=== PATIENT | female | born 1965 | race Caucasian/White ===

== ENCOUNTER 2019-07-04 14:44 | Emergency (ER) | payer OTHER ==
[2019-07-04] MEDS ORDERED: BUPIVACAINE 0.5% PF 10 ML VIAL ONE (15:18)
[2019-07-04] MEDS ORDERED: TETANUS & DIPHTHERIA TOX,ADULT 0.5 ML VIAL ONE (16:04)
--- NOTE | 2019-07-04 16:21 | ER ---
Nurse's Notes [facility] Name: Vivi Hernandez Age: 53 yrs Sex: Female : 1965 Arrival Date: 07/04/2019 Time: 14:53 Bed 18 Private MD: None, None Diagnosis: Foreign Body to the Right Finger Presentation: 07/03 15:02 Chief complaint: Patient states: Fish hook to R index finger, reports dizziness and ph nausea r/t pain. Coronavirus screen: Patient denies a cough. Patient denies measured and/or subjective temperature greater than 100.4F prior to today's visit. Patient denies travel on a cruise ship or to a country the [facility] currently lists as an affected area. Patient denies contact with known and/or suspected case of COVID-19. Ebola Screen: No symptoms or risks identified at this time. Initial Sepsis Screen: Does the patient meet any 2 criteria? No. Patient's initial sepsis screen is negative. Does the patient have a suspected source of infection? No. Patient's initial sepsis screen is negative. Risk Assessment: Do you want to hurt yourself or someone else? Patient reports no desire to harm self or others. Onset of symptoms was July 04, 2019. 15:02 Method Of Arrival: Wheelchair ph 15:02 Acuity: FCO 4 ph Historical: - Allergies: 15:06 No Known Allergies; ph - Home Meds: 15:06 Hydrocodone-Acetaminophen Oral [Active]; ph - PMHx: 15:06 Thyroid problem; Chronic pain; ph - Immunization history:: Adult Immunizations unknown, Last tetanus immunization: unknown. - Social history:: Smoking status: Patient reports the use of cigarette tobacco products, smokes one pack cigarettes per day. Screenin:27 Abuse screen: Denies threats or abuse. Nutritional screening: No deficits noted. Tuberculosis screening: No symptoms or risk factors identified. Fall Risk None identified. Assessment: 15:27 General: Appears in no apparent distress. Behavior is calm. Pain: Complains of pain in ah palmar aspect of distal phalanx of right index finger. Neuro: Level of Consciousness is awake, alert, Oriented to person, place, time. Cardiovascular: Heart tones S1 S2 present Capillary refill < 3 seconds Patient's skin is warm and dry. Respiratory: Airway is patent Respiratory effort is even, unlabored, Respiratory pattern is regular, symmetrical, Breath sounds are clear bilaterally. GI: No signs and/or symptoms were reported involving the gastrointestinal system. : No signs and/or symptoms were reported regarding the genitourinary system. EENT: No signs and/or symptoms were reported regarding the EENT system. Derm: No signs and/or symptoms reported regarding the dermatologic system. Musculoskeletal: No signs and/or symptoms reported regarding the musculoskeletal system. Injury Description: Foreign body is located palmar aspect of distal phalanx of right index finger is fishhook in tip of finger was sustained 2-4 hours ago. Vital Signs: 15:02 BP 132 / 94; Pulse 86; Resp 18; Temp 97.6; Pulse Ox 98% on R/A; Weight 79.38 kg; Height ph 5 ft. 0 in. (152.40 cm); Pain 8/10; 15:02 Body Mass Index 34.18 (79.38 kg, 152.40 cm) ph ED Course: 14:53 Patient arrived in ED. dp 14:54 None, None is Private Physician. dp 14:56 Mike Michel PA is PHCP. [facility] 14:56 Tomer Miller MD is Attending Physician. [facility] 15:04 Triage completed. 15:07 Arm band placed on Patient placed in an exam room. 15:26 Norma Diaz, RN is Primary Nurse. 15:33 Patient has correct armband on for positive identification. Bed in low position. Call light in reach. Side rails up X 1. 16:10 Patient did not have IV access during this emergency room visit. 16:11 fishhook removal, set up supplies. 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 Exp: 05/03/2021. Lot #: [id number]. } Route: IM; Site: right deltoid; 17:00 Follow up: Response: No adverse reaction Outcome: 16:20 Discharge ordered by . [facility] 17:00 Discharge instructions given to patient, Instructed on discharge instructions, follow ah up and referral plans. Demonstrated understanding of instructions, follow-up care, medications, Prescriptions given X 2. 17:14 Patient left the ED. 17:15 Discharged to home ambulatory. 17:15 Condition: good Signatures: Mike Michel PA PA jmm Hall, Patricia, RN RN ph Mayo Wells Amy, RN RN
--- NOTE | 2019-07-04 16:21 | EDPHYS ---
Physician Documentation [facility] Name: Vivi Hernandez Age: 53 yrs Sex: Female : 1965 Arrival Date: 07/04/2019 Time: 14:53 Bed 18 Private MD: None, None ED Physician Tomer Miller Historical: - Allergies: 07/03 15:06 No Known Allergies; ph - Home Meds: 15:06 Hydrocodone-Acetaminophen Oral [Active]; ph - PMHx: 15:06 Thyroid problem; Chronic pain; ph - Immunization history:: Adult Immunizations unknown, Last tetanus immunization: unknown. - Social history:: Smoking status: Patient reports the use of cigarette tobacco products, smokes one pack cigarettes per day. Vital Signs: 15:02 BP 132 / 94; Pulse 86; Resp 18; Temp 97.6; Pulse Ox 98% on R/A; Weight 79.38 kg; Height ph 5 ft. 0 in. (152.40 cm); Pain 8/10; 15:02 Body Mass Index 34.18 (79.38 kg, 152.40 cm) ph Procedures: 16:14 Foreign Body Removal: a fishhook, from the right palmar aspect of distal phalanx of [facility] right index finger, by using a hemostat, The patient tolerated the removal well. MDM: 15:06 Patient medically screened. [facility] 16:14 Data reviewed: vital signs, nurses notes. Counseling: I had a detailed discussion with steven the patient and/or guardian regarding: the historical points, exam findings, and any diagnostic results supporting the discharge/admit diagnosis, the need for outpatient follow up, to return to the emergency department if symptoms worsen or persist or if there are any questions or concerns that arise at home. 16:14 ED course: Patient given infection risk return precautions. Patient understood and steven agrees with the plan of care. . 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 Exp: 05/03/2021. Lot #: [id number]. } Route: IM; Site: right deltoid; 17:00 Follow up: Response: No adverse reaction Disposition: 07/04/19 16:20 Discharged to Home. Impression: Foreign Body to the Right Finger. - Condition is Stable. - Prescriptions for Ultracet 37.5- 325 mg Oral Tablet - take 1 tablet by ORAL route every 6 hours - for up to 5 days; do not exceed 8 tablets per day.; 12 tablet. Doxycycline Hyclate 100 mg Oral Tablet - take 1 tablet by ORAL route every 12 hours; 20 tablet. - Medication Reconciliation Form, Thank You Letter, Antibiotic Education, Prescription Opioid Use form. - Follow up: Private Physician; When: 2 - 3 days; Reason: Recheck today's complaints, Continuance of care, Re-evaluation by your physician. Addendum: 07/18/2019 17:26 Addendum: This is a 53 year old female with a history of chronic pain that presents to j the ED with complaints of fishhook to the right 2nd finger. This occurred while fishing. patient denies other injury. Patient is not UTD on tetanus immunizations. ROS: MS positive for injury, otherwise negative. PE: GEN NAD, Cardio RRR, Resp No resp distress appreciated, Extremities fishhook noted to the right 2nd finger, FROM appreciated, < 2 sec cap refill, NVI, Psych Pleasant and calm, Neck FROM appreciated, Neuro A x O X 3. Procedure: The right second finger was anesthetized with 3 ml of 0.5% marcaine. Good anesthesia was achieved. [place] removed using hemostats. Procedure successful. Patient tolerated this well. MDM: Fish hook removed. Patient covered with oral abx due to risk of infection. Patient was given wound infection return precautions. Patient understood and agrees with the plan of care. . Signatures: Mike Michel PA PA jmm Hall, Patricia, RN RN Norma Diaz RN RN Corrections: (The following items were deleted from the chart) 07/03 17:14 16:20 07/04/2019 16:20 Discharged to Home. Impression: Foreign Body to the Right ah Finger. Condition is Stable. Forms are Medication Reconciliation Form, Thank You Letter, Antibiotic Education, Prescription Opioid Use. Follow up: Private Physician; When: 2 - 3 days; Reason: Recheck today's complaints, Continuance of care, Re-evaluation by your physician. steven
[2019-07-04 17:20] VITALS: BP 132/94; TEMP 97.6; O2SAT 98
== END 2019-07-04 17:14 | disposition home or self-care (01) ==
LOC: ER 14:44
DX: S61.240A Puncture wound with foreign body of right index finger without damage to nail, initial encounter (principal); E07.9 Disorder of thyroid, unspecified; F17.210 Nicotine dependence, cigarettes, uncomplicated; Z23 Encounter for immunization
CPT/HCPCS: 90471; 90714; 99283

== ENCOUNTER 2020-12-22 14:35 | Emergency (ER) | payer OTHER ==
[2020-12-22 15:13] LABS: Urine Blood Negative (Negative); Urine Glucose Negative (Negative); Urine Protein Negative (Negative); Urine pH 6.5 (5.0-7.0)
[2020-12-22 15:51] LABS: Absolute Lymphocytes (CBC) 1.4 K/uL (0.7-4.9); Basophils % 1.2 % (0-1.3); Lymphocytes % 17.5 % (15.3-44.8); MPV 10.3 fL (7.6-11.3); RBC Red Blood Cell Count 4.73 M/uL (3.86-4.86)
[2020-12-22 15:51] LABS: Barbiturates NEGATIVE (NEGATIVE); Benzodiazepines NEGATIVE (NEGATIVE); Cocaine NEGATIVE (NEGATIVE); METHAMPHETAM NEGATIVE (NEGATIVE); Methadone NEGATIVE (NEGATIVE); Opiates NEGATIVE (NEGATIVE); Phencyclidine NEGATIVE (NEGATIVE); THC Cannibis NEGATIVE (NEGATIVE)
[2020-12-22 15:56] LABS: Protime INR 0.97
[2020-12-22 16:20] LABS: ALT/SGPT 18 U/L (12-78); AST/SGOT 13 U/L (15-37); Albumin 3.6 g/dL (3.4-5.0); Alkaline Phosphatase 109 U/L (45-117); BUN Blood Urea Nitrogen 10 mg/dL (7-18); Bicarbonate 29 mmol/L (21-32); Bilirubin Direct < 0.1 mg/dL (0-0.2); Bilirubin Total 0.3 mg/dL (0.2-1.0); Glucose Level 109 mg/dL (74-106); Potassium 3.5 mmol/L (3.5-5.1); Protein, Total 7.8 g/dL (6.4-8.2); Sodium Level 142 mmol/L (136-145)
--- NOTE | 2020-12-22 17:12 | ER ---
Nurse's Notes [facility] Name: Vivi Hernandez Age: 54 yrs Sex: Female : 1965 Arrival Date: 12/22/2020 Time: 14:39 Bed Treatment Private MD: Jonnathan Craft Diagnosis: Adjustment disorder with depressed mood;Suicidal ideations Presentation: 12/22 14:43 Chief complaint: Patient states: "Just having some suicidal issues." Pt has no plan at sv this time. No Attempts made. Family reports that she saw her psychiatrist this morning and was expressing to the MD her thoughts of suicide. They had to call the authorities, and the police showed up at her door. Risk Assessment: Do you want to hurt yourself or someone else? Patient reports desire/thoughts of hurting themselves or someone else. Provider notified. Onset of symptoms was December 22, 2020. 14:43 Method Of Arrival: Ambulatory sv 14:43 Acuity: FCO 2 sv 14:46 Coronavirus screen: Vaccine status: Patient reports receiving the 2nd dose of the covid sv vaccine. Patient reports receiving the 1st dose of the Covid vaccine. 14:47 Ebola Screen: No symptoms or risks identified at this time. Initial Sepsis Screen: Does sv the patient meet any 2 criteria? HR > 90 bpm. No. Patient's initial sepsis screen is negative. Does the patient have a suspected source of infection? No. Patient's initial sepsis screen is negative. 12/23 09:[address] Nolen evaluated pt, pt denies SI/HI at this time, Dr. Nolen ok to tc5 discharge pt, pt called her aunt to pick her up. pt remorseful for statements she made yesterday and thankful to staff for help. pt waiting in room for aunt to come. Triage Assessment: 12/22 14:48 General: Appears in no apparent distress. comfortable, Behavior is calm, cooperative. sv Neuro: Level of Consciousness is awake, alert, Gait is steady. Respiratory: Respiratory effort is even, unlabored. Historical: - Allergies: 14:44 Morphine; sv 14:44 PENICILLINS; sv - Home Meds: 15:22 Lexapro Oral [Active]; atomoxetine 40 mg oral cap once daily [Active]; amitriptyline 25 tc5 mg Oral tab 1 tab once daily [Active]; gabapentin 100 mg oral cap 1 cap 3 times per day [Active]; atorvastatin 40 mg oral tab [Active]; Levothroid 75 mcg Oral tab 1 tab once daily [Active]; Ventolin HFA 90 mcg/actuation Nebulizer HFAA [Active]; 15:28 triamcinolone acetonide 0.1 % Topical crea [Active]; benzonatate oral [Active]; tc5 Claritin 10 mg Oral tab [Active]; budesonide oral [Active]; Flonase Nasal [Active]; - PMHx: 14:44 Chronic pain; Thyroid problem; sv 14:46 learning disability; sv - Immunization history:: Adult Immunizations up to date. - Social history:: Smoking status: . Screenin:53 Abuse screen: Denies threats or abuse. Denies injuries from another. Nutritional tc5 screening: No deficits noted. Tuberculosis screening: No symptoms or risk factors identified. Fall Risk None identified. Assessment: 15:17 Reassessment: Patient appears in no apparent distress at this time. No changes from tc5 previously documented assessment. pt comes in to the ER with career and transition teacher, pt was at doctor appointment expressed to doctor that she was suicidal, with no plan. mall plant caretaker states the police then arrive at her home and told her she can just do nothing or take pt to the er to be evaluated, she chose to take her to ER. Pt denies SI/HI states she just feels like that sometimes and dont have a plan. Pt is cooperative at this time. 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 Pain: Denies pain. 17:13 General: Behavior is Pt becoming anxious, wanting to go home, wanting to go outside and tc5 smoke, Anthony went and talked to pt to reassure pt. pt meal provided to assist with reassurance and to help calm pt. . 19:00 Reassessment: Patient and/or family updated on plan of care and expected duration. Pain lh3 level reassessed. Patient is alert, oriented x 3, equal unlabored respirations, skin warm/dry/pink. Patient sleeping and sitter at bedside, with caregiver. 20:00 Reassessment: Patient and/or family updated on plan of care and expected duration. Pain lh3 level reassessed. Patient is alert, oriented x 3, equal unlabored respirations, skin warm/dry/pink. Patient sleeping sitter at bedside with caregiver. 21:13 Reassessment: Patient and/or family updated on plan of care and expected duration. Pain lh3 level reassessed. Patient is alert, oriented x 3, equal unlabored respirations, skin warm/dry/pink. patient sleeping, caregiver left and sitter at bedside. 22:15 Reassessment: No changes from previously documented assessment. Patient and/or family lh3 updated on plan of care and expected duration. Pain level reassessed. Patient is alert, oriented x 3, equal unlabored respirations, skin warm/dry/pink. Patient denies pain at this time. 23:04 Reassessment: No changes from previously documented assessment. Patient and/or family lh3 updated on plan of care and expected duration. Pain level reassessed. Patient is alert, oriented x 3, equal unlabored respirations, skin warm/dry/pink. Patient denies pain at this time. 12/23 00:40 Reassessment: No changes from previously documented assessment. Patient and/or family lh3 updated on plan of care and expected duration. Pain level reassessed. Patient is alert, oriented x 3, equal unlabored respirations, skin warm/dry/pink. patient sleeping at this time. No acute signs of distress. 01:30 Reassessment: No changes from previously documented assessment. Patient and/or family lh3 updated on plan of care and expected duration. Pain level reassessed. Patient is alert, oriented x 3, equal unlabored respirations, skin warm/dry/pink. Pt resting on bed, no acute signs of distress. 02:00 Reassessment: Patient appears in no apparent distress at this time. No changes from lh3 previously documented assessment. Patient and/or family updated on plan of care and expected duration. Pain level reassessed. Patient is alert, oriented x 3, equal unlabored respirations, skin warm/dry/pink. 03:00 Reassessment: Patient appears in no apparent distress at this time. No changes from lh3 previously documented assessment. Patient and/or family updated on plan of care and expected duration. Pain level reassessed. Patient is alert, oriented x 3, equal unlabored respirations, skin warm/dry/pink. Patient denies pain at this time. 04:00 Reassessment: Patient appears in no apparent distress at this time. No changes from 3 previously documented assessment. Patient and/or family updated on plan of care and expected duration. Pain level reassessed. Patient is alert, oriented x 3, equal unlabored respirations, skin warm/dry/pink. Patient denies pain at this time. 05:03 Reassessment: Patient appears in no apparent distress at this time. No changes from 3 previously documented assessment. Patient and/or family updated on plan of care and expected duration. Pain level reassessed. Patient is alert, oriented x 3, equal unlabored respirations, skin warm/dry/pink. Patient denies pain at this time. 06:03 Reassessment: Patient appears in no apparent distress at this time. No changes from 3 previously documented assessment. Patient and/or family updated on plan of care and expected duration. Pain level reassessed. Patient is alert, oriented x 3, equal unlabored respirations, skin warm/dry/pink. Patient denies pain at this time. Psych: 12/22 14:44 [place]er Suicide Severity Screening: In the past month, have you wished you were sv or wished you could go to sleep and not wake up? Patient responds "No." "In the past month, have you actually had any thoughts of killing yourself?" Patient responds "yes." "In your lifetime, have you ever done anything, started to do anything, or prepared to do anything to end your life?" Patient responds "yes.". Subjective: Patient's mood is sad, Delusions are denied, Hallucinations are denied Having thoughts of suicide. Denies suicidal plan. Objective: Patient is cooperative, Speech is normal, Affect is appropriate. Pt denies substance abuse. Vital Signs: 14:47 BP 146 / 95; Pulse 98; Resp 16; Temp 98.9; Pulse Ox 99% ; Height 5 ft. 0 in. (152.40 sv cm); Pain 0/10; 20:00 BP 152 / 87; Pulse 72; Resp 18; Pulse Ox 99% on R/A; lh3 12/23 04:59 BP 168 / 92; Pulse 73; Resp 18; Temp 98.5; Pulse Ox 97% on R/A; lh3 08:42 BP 179 / 97; Pulse 88; Resp 16; Temp 98.6(O); Pulse Ox 95% on R/A; 1 ED Course: 12/22 14:39 Patient arrived in ED. am2 14:40 Jonnathan Craft DO is Private Physician. am2 14:42 Arm band placed on. sv 14:44 Triage completed. sv 15:03 [facility] Blunt [facility]. pm1 15:03 Syed Gonzalez MD is Attending Physician. pm1 15:17 Tracey Selby, POLLY is Primary Nurse. tc5 17:28 faxed chart to [facility]. 23:05 No provider procedures requiring assistance completed. Patient did not have IV access lh3 during this emergency room visit. 12/23 08:29 contacted [facility], they are still working on the chart, will call back in a bd few min. 09:03 Attending Physician role handed off by Syed Gonzalez MD steven 09:03 David Nolen MD is Attending Physician. steven 09:04 Alejandro Lorenzo MD is Referral Physician. steven Administered Medications: No medications were administered Outcome: 12/22 17:11 ER care complete, transfer ordered by . pm1 12/23 09:06 Discharge ordered by . steven 10:34 Patient left the ED. [facility] Signatures: Sybil Her Stephanie, RN RN sv Anderson, Corey, MD MD cha Marinas, Patrick, NP SUPERVISOR CUSTOMER COMPLAINT SERVICE pm1 Daya Trejo am2 Treasure Hart RN RN 3 Nancy Diaz 1 Tracey Selby RN RN tc5 Corrections: (The following items were deleted from the chart) 12/22 14:44 14:44 Allergies: No Known Allergies; sv sv 14:49 14:43 Chief complaint: Patient states: "Just having some suicidal issues." Pt has no sv plan at this time. No Attempts made. sv 14:49 14:47 Pulse 98bpm; Resp 16bpm; Pulse Ox 99%; Temp 98.9F; Height 5 ft. 0 in.; Pain 0/10; sv sv 15:59 15:49 CORONAVIRUS+LAB.BRZ drawn and sent. tc5 EDMS
--- NOTE | 2020-12-22 17:12 | EDPHYS ---
Physician Documentation [facility] Name: Vivi Hernandez Age: 54 yrs Sex: Female : 1965 Arrival Date: 12/22/2020 Time: 14:39 Bed Treatment Private MD: Jonnathan Craft ED Physician David Nolen HPI: 12/22 15:16 This 54 yrs old Female presents to ER via Ambulatory with complaints of pm1 Suicidal Ideation. 15:16 The patient presents to the emergency department with suicide ideation, but the patient pm1 has no formulated plan. Onset: The symptoms/episode began/occurred at an unknown time. Past psychiatric history: Prior diagnosis: depression, Psychiatric medications include: Lexapro, Amitriptyline, Primary psychiatric physician: Dr. Mcarthur, the patient has not had a prior suicide gesture, the patient does not have a previous inpatient psychiatric history. Associated signs and symptoms: Pertinent negatives: homicidal ideation, substance abuse. The patient has experienced similar episodes in the past, a few times, mentioned to career development director that "[she] would like it to end" in the past. The patient has been recently seen by a physician: a psychiatrist, Blue prior to arrival. Patient expressed to Dr. Mcarthur while she was having a virtual session from home that she was having suicidal thoughts and would like to kill herself. Police officers arrived to the home and gave the career development director, her aunt, the option of taking the patient to the ER or accepting responsibility for the patient's actions. Negative for plan, homicidal ideation. According to the career development director, tests by her physician revealed that the patient has the mental capacity of a 10 year old. Historical: - Allergies: 14:44 Morphine; sv 14:44 PENICILLINS; sv - Home Meds: 15:22 Lexapro Oral [Active]; atomoxetine 40 mg oral cap once daily [Active]; amitriptyline 25 tc5 mg Oral tab 1 tab once daily [Active]; gabapentin 100 mg oral cap 1 cap 3 times per day [Active]; atorvastatin 40 mg oral tab [Active]; Levothroid 75 mcg Oral tab 1 tab once daily [Active]; Ventolin HFA 90 mcg/actuation Nebulizer HFAA [Active]; 15:28 triamcinolone acetonide 0.1 % Topical crea [Active]; benzonatate oral [Active]; tc5 Claritin 10 mg Oral tab [Active]; budesonide oral [Active]; Flonase Nasal [Active]; - PMHx: 14:44 Chronic pain; Thyroid problem; sv 14:46 learning disability; sv - Immunization history:: Adult Immunizations up to date. - Social history:: Smoking status: . ROS: 15:16 Constitutional: Negative for fever, chills, and weight loss, Cardiovascular: Negative pm1 for chest pain, palpitations, and edema, Respiratory: Negative for shortness of breath, cough, wheezing, and pleuritic chest pain, Abdomen/GI: Negative for abdominal pain, nausea, vomiting, diarrhea, and constipation, MS/Extremity: Negative for injury and deformity, Skin: Negative for injury, rash, and discoloration, Neuro: Negative for headache, weakness, numbness, tingling, and seizure. 15:16 Psych: Positive for suicidal ideation, Negative for drug dependence, alcohol dependence, auditory hallucinations, visual hallucinations, homicidal ideation, suicide gesture. 15:16 All other systems are negative. pm1 Exam: 15:16 Constitutional: This is a well developed, well nourished patient who is awake, alert, pm1 and in no acute distress. Head/Face: Normocephalic, atraumatic. 15:16 Skin: Warm, dry with normal turgor. Normal color with no rashes, no lesions, and no evidence of cellulitis. MS/ Extremity: Pulses equal, no cyanosis. Neurovascular intact. Full, normal range of motion. 15:16 Eyes: Exam is negative for acute changes, Extraocular movements: no acute changes, Conjunctiva: no acute changes, no injection. 15:16 ENT: Exam is negative for acute changes, Mouth: no acute changes, Lips: normal, moist, Oral mucosa: normal, pink and intact, moist. 15:16 Cardiovascular: Exam negative for acute changes, Rate: normal, Rhythm: regular, Pulses: no pulse deficits are appreciated. 15:16 Respiratory: Exam negative for acute changes, respiratory distress, shortness of breath. 15:16 Abdomen/GI: Exam negative for acute changes, Inspection: abdomen appears normal, Palpation: abdomen is soft and non-tender, in all quadrants. 15:16 Neuro: Exam negative for acute changes, Orientation: to person, place, time \\T\\ situation. Mentation: is normal, Motor: moves all fours, Gait: is steady, at a normal pace, without difficulty. Vital Signs: 14:47 BP 146 / 95; Pulse 98; Resp 16; Temp 98.9; Pulse Ox 99% ; Height 5 ft. 0 in. (152.40 sv cm); Pain 0/10; 20:00 BP 152 / 87; Pulse 72; Resp 18; Pulse Ox 99% on R/A; lh3 12/23 04:59 BP 168 / 92; Pulse 73; Resp 18; Temp 98.5; Pulse Ox 97% on R/A; lh3 08:42 BP 179 / 97; Pulse 88; Resp 16; Temp 98.6(O); Pulse Ox 95% on R/A; kh1 MDM: 12/22 15:03 Patient medically screened. pm1 17:10 Data reviewed: vital signs. Data interpreted: Pulse oximetry: on room air is 99 %. pm1 Interpretation: normal. Counseling: I had a detailed discussion with the patient and/or guardian regarding: the historical points, exam findings, and any diagnostic results supporting the discharge/admit diagnosis, lab results, the need to transfer to another facility, [facility] does not immediately have the required specialist. 12/22 15:05 Order name: Acetaminophen; Complete Time: 16:28 pm1 12/22 15:05 Order name: Basic Metabolic Panel; Complete Time: 16:28 pm1 12/22 15:05 Order name: CBC with Diff; Complete Time: 16:28 pm1 12/22 15:05 Order name: ETOH Level; Complete Time: 16:28 pm1 12/22 15:05 Order name: Hepatic Function; Complete Time: 16:28 pm1 12/22 15:05 Order name: PT-INR; Complete Time: 16:28 pm1 12/22 15:05 Order name: Ptt, Activated; Complete Time: 16:28 pm1 12/22 15:05 Order name: Salicylate; Complete Time: 16:28 pm1 12/22 15:05 Order name: Urine Drug Screen; Complete Time: 16:28 pm1 12/22 15:05 Order name: EKG; Complete Time: 15:06 pm1 12/22 15:13 Order name: Urine Dipstick-Ancillary; Complete Time: 15:16 EDMS 12/22 15:14 Order name: Urine --Ancillary (enter results); Complete Time: 16:28 bd 12/22 15:59 Order name: SARS-COV-2 RT PCR; Complete Time: 17:11 EDMS 12/22 15:05 Order name: EKG - Nurse/Tech; Complete Time: 15:45 pm1 12/22 15:05 Order name: IV Saline Lock; Complete Time: 15:45 pm1 12/22 15:05 Order name: Labs collected and sent; Complete Time: 15:45 pm1 12/22 15:05 Order name: Urine Dipstick-Ancillary (obtain specimen); Complete Time: 16:06 pm1 12/22 15:05 Order name: Urine Test (obtain specimen); Complete Time: 16:06 pm1 12/22 17:07 Order name: Diet Regular; Complete Time: 17:08 pm1 12/23 08:53 Order name: Diet Finger Food; Complete Time: 08:53 bd Administered Medications: No medications were administered Disposition: 12/24 07:51 Co-signature as Attending Physician, David Nolen MD I agree with the assessment and steven plan of care. Disposition Summary: 12/23/20 09:06 Discharge Ordered Location: Home steven Problem: new(12/23/20 09:06) steven Symptoms: have improved(12/23/20 09:06) steven Condition: Stable(12/23/20 09:06) steven Diagnosis - Adjustment disorder with depressed mood steven - Suicidal ideations(12/23/20 09:06) steven Followup: steven - With: Private Physician - When: 2 - 3 days - Reason: Recheck today's complaints, Continuance of care, Re-evaluation by your physician Followup: steven - With: Alejandro Lorenzo MD - When: 2 - 3 days - Reason: Recheck today's complaints, Re-evaluation by your physician Discharge Instructions: - Discharge Summary Sheet steven - Adjustment Disorder, Adult steven - Suicidal Feelings: How to Help Yourself steven - Helping Someone Who is Suicidal steven - Stress, Adult steven Forms: - Medication Reconciliation Form steven - Thank You Letter steven - Antibiotic Education steven - Prescription Opioid Use steven Signatures: Dispatcher [employer] Radha Mcintyre RN RN sv Anderson, Corey, MD MD cha Marinas, Patrick, EMU FARMER EMU FARMER pm1 Tracey Selby, RN RN tc5 Corrections: (The following items were deleted from the chart) 12/22 14:44 14:44 Allergies: No Known Allergies; sv sv 15:59 15:43 CORONAVIRUS+[email or web address] ordered. EDMS EDMS 12/23 08:12/22 17:[address] 12/23 08:12/22 17:11 Psych Facility [address] 12/23 17:[address] 12/23 08:12/22 17:[address] 12/23 08:12/22 17:[address] 12/23 08:03 12/22 17:11 are unchanged [address] 12/23 08:12/22 17:11 [address]
[2020-12-23 10:43] VITALS: BP 179/97; TEMP 98.6; O2SAT 95
--- NOTE | 2020-12-23 16:45 | EKG ---
Test Date: 2020-12-22 Test Time: 15:43:32 Full Stack Engineer: MADDIE MEASUREMENT RESULTS: Intervals: Rate: 88 NH: 148 QRSD: 78 QT: 366 QTc: 442 [place]: P: 62 NH: 148 QRS: 66 T: 44 INTERPRETIVE STATEMENTS: Sinus rhythm with occasional premature ventricular complexes Otherwise normal ECG No previous ECG available for comparison Electronically Signed On 12-23-20 16:42:54 CDT by Rudy Mireles
== END 2020-12-23 10:34 | disposition home or self-care (01) ==
LOC: ER 14:35
DX: F43.21 Adjustment disorder with depressed mood (principal); G89.29 Other chronic pain; E07.9 Disorder of thyroid, unspecified; Z20.822 Contact with and (suspected) exposure to COVID-19; Z88.0 Allergy status to penicillin; Z88.5 Allergy status to narcotic agent
CPT/HCPCS: 93005; 85025; 80048; 36415; 80320; 80329 ×2; 81025; 85610; 80076; 85730; 81003; 80307; 99284; U0003